=== PATIENT | female | born 1995 ===

== ENCOUNTER 2025-09-05 16:50 | Observation (INO) | payer OTHER ==
[2025-09-05 17:24] LABS: Glucose, Urine Negative (Negative); Protein,Urine Dip Negative (Negative); RBC 0-2 /HPF (0-5); WBC 0-2 /HPF (0-5)
[2025-09-05 17:46] LABS: Amphetamine,Urine NEGATIVE (NEGATIVE); Barbiturate,Urine NEGATIVE (NEGATIVE); Benzodiazepine,Urine NEGATIVE (NEGATIVE); Cocaine,Urine NEGATIVE (NEGATIVE); Methadone,Urine NEGATIVE (NEGATIVE); Opiate,Urine NEGATIVE (NEGATIVE); PCP,Urine NEGATIVE (NEGATIVE); THC,Urine NEGATIVE (NEGATIVE)
[2025-09-05 17:51] LABS: AMNISURE TEST RESULTS NEGATIVE (NEGATIVE)
[2025-09-05 18:14] VITALS: BP 108/62; PULSE 75; RESP 22; O2SAT 99
== END 2025-09-05 18:30 | disposition home or self-care (01) ==
LOC: OB 16:50
PROVIDERS: ADMIT Family Medicine; ATTEND Family Medicine
DX: Z34.82 Encounter for supervision of other normal pregnancy, second trimester (principal); Z3A.24 24 weeks gestation of pregnancy